=== PATIENT | female | born 1975 | race African-American/Black ===

== ENCOUNTER 2018-06-06 11:39 | Emergency (ER) | payer MEDICAID, OTHER ==
[~2018-06-06] VITALS: Ht 170.2 cm; Wt 113.4 kg
--- NOTE | 2018-06-06 11:42 | NUR ---
ED Nurse Note: Pt is in the restroom, will try to call again.
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
[2018-06-06 11:59] VITALS: BP 158/82
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
[2018-06-06] MEDS ORDERED: Lidocaine 1% Plain 30 ml INJ ONE (12:15)
[2018-06-06] MEDS ORDERED: Ketorolac 30mg Inj IM ONE (12:15)
[2018-06-06] MEDS ORDERED: Bacitracin Oint UD TOPIC ONE (12:15)
[2018-06-06] MEDS ORDERED: Tetanus/Diptheria/Pertussis Vaccine 0.5ml Syr IM ONE (12:15)
[2018-06-06] MEDS: Bacitracin Oint UD TOPIC ONE ×2 (12:26→12:53)
--- NOTE | 2018-06-06 13:05 | NUR ---
ED Nurse Note: RN advised patient to stay in her room until she gets discharged, patient insisted to go out to her car.
[2018-06-06] MEDS ORDERED: ROBAXIN500 MG PO (13:39)
[2018-06-06] MEDS ORDERED: CEPHALEXIN500 MG ORAL (13:39)
[2018-06-06] MEDS ORDERED: BACITRACIN-P28.35 GM TP (13:39)
[2018-06-06] MEDS ORDERED: IBUPROFEN600 MG ORAL (13:39)
[2018-06-06 13:47] VITALS: BP 149/80
--- NOTE | 2018-06-06 13:47 | NUR ---
ER DISCHARGE NOTE: Patient is cleared to be discharged per Michelle, pt is aox4, on room air, with stable vital signs. pt was given dc and prescription instructions, pt was able to verbalize understanding, pt id band removed. pt is able to ambulate with steady gait. pt took all belongings.
--- NOTE | 2018-06-06 14:21 | Diagnostic Imaging Report ---
Indication: Left shoulder pain Technique: 3 views of the left shoulder Comparison: none Findings: No acute fractures. No dislocations. The joint spaces are preserved Impression: No acute process
== END 2018-06-06 13:47 | disposition home or self-care (01) ==
LOC: EMR 12:25
DX: S49.92XA Unspecified injury of left shoulder and upper arm, initial encounter (principal); S71.112A Laceration without foreign body, left thigh, initial encounter; W52.XXXA Crushed, pushed or stepped on by crowd or human stampede, initial encounter; Y92.9 Unspecified place or not applicable; Z23 Encounter for immunization
CPT/HCPCS: 29105; 73030; 90471; 90715; 96372; 99283; J1885; J2001